=== PATIENT | female | born 1985 | race Caucasian/White ===

== ENCOUNTER 2020-02-01 16:21 | Outpatient (CLI) | payer BC, SELFPAY ==
--- NOTE | ~2020-02-01 | US_ITS ---
EXAMINATION: US thyroid EXAM DATE: 02/01/2020 17:02 INDICATION: Goiter. TECHNIQUE: Multiple grayscale and Doppler images of the thyroid were obtained (by a technologist who performed the scan) and subsequently reviewed. Individual nodules may be reported using TI-RADS syst em as designated by the 2017 ACR White Paper TI-RADS committee. There is no prior study for comparis on. FINDINGS: The right thyroid lobe measures 4.5 x 1.8 x 1.7 cm, the left measures 4.6 x 1.4 x 1.7 cm. There is di ffusely heterogeneous thyroid echogenicity. Difficult to pick out any definite nodules within the het erogeneous thyroid parenchyma. IMPRESSION: Mildly enlarged, very heterogeneous thyroid parenchyma. Reviewed, dictated and finalized at location A. OPATHOLOGY TECHNICIAN
== END 2020-02-01 16:22 | disposition home or self-care (01) ==
LOC: ANHIMG 16:26
PROVIDERS: PCP Nurse Practitioner Family; Visit Provider Nurse Practitioner Family
DX: E04.9 Nontoxic goiter, unspecified (principal)
CPT/HCPCS: 76536

== ENCOUNTER 2020-10-06 11:50 | Outpatient (NON) | payer BC, SELFPAY ==
[2020-10-06 21:15] LABS: SARS-CoV-2 RNA PCR Negative
== END 2020-10-06 11:51 ==
PROVIDERS: PCP Nurse Practitioner Family; Visit Provider Nurse Practitioner Family
DX: Z20.828 Contact with and (suspected) exposure to other viral communicable diseases (principal); R52 Pain, unspecified; M54.6 Pain in thoracic spine; R50.9 Fever, unspecified
CPT/HCPCS: 87635; C9803; U0003

== ENCOUNTER 2022-11-26 10:44 | Emergency (ER) | payer BC, SELFPAY ==
[2022-11-26 11:24] VITALS: BP 107/63; PULSE 64; RESP 16; TEMP 37.3; O2SAT 100
--- NOTE | 2022-11-26 12:33 | ED.FEMALEGU ---
HPI - Female Genitourinary General Chief complaint: Urogenital-Female Stated complaint: uti Time Seen by Provider: 11/26/22 12:34 Source: patient and RN notes reviewed Mode of arrival: ambulatory Limitations: no limitations History of Present Illness HPI Narrative: 37-year-old female presents concern for suprapubic discomfort, flank pain, chills. Reports the urinalysis that she had her software solutions architect showed abnormality through her online chart, her software solutions architect's office is closed. She reports symptoms have seemed to get worse so she wanted to be seen. MD elicited complaint: UTI Related Data Home Medications Medication Instructions Recorded Confirmed norethindrone 1 mg-ethinyl 1 tablet PO DAILY 11/26/22 11/26/22 estradiol 20 mcg (21)-iron 75 mg (7) tablet ([place] Fe 12/21 (28)) Allergies Allergy/AdvReac Type Severity Reaction Status Date / Time metformin AdvReac Cramping Verified 11/26/22 12:24 of the Muscles Review of Systems Review of Systems: CONSTITUTIONAL: Reports malaise, chills CARDIOVASCULAR: Denies chest pain, palpitations, or edema. RESPIRATORY: Denies cough or dyspnea. GASTROINTESTINAL: Denies abdominal pain, nausea, vomiting, diarrhea GENITOURINARY: Denies dysuria, frequency, urgency, hematuria. Reports bilateral flank pain, suprapubic discomfort SKIN: Denies rash or itching. MUSCULOSKELETAL: Denies back pain or myalgia. All systems reviewed & are unremarkable except as noted in HPI and below PMFSH Family History Family History (Updated 07/17/18 @ 08:34 by DOCTOR UNKNOWN) Grandparent Diabetes mellitus Family history of osteoporosis Cerebrovascular accident Father Family history of lung cancer Social History Social History Smoking status: Never smoker Alcohol intake: current Comments At time of signature, agree with nursing past medical, surgical, social and family history. There is no relevant family history pertinent to the presenting complaint Exam Narrative: GENERAL: Well-appearing, well-nourished, and in no acute distress. HEAD: Normocephalic. EYES: PERRLA, conjunctivae clear. NECK: Supple. No lymphadenopathy CHEST: Clear to auscultation. No respiratory distress. HEART: Regular rate and rhythm. ABDOMEN: Soft, nontender upon palpation, nondistended, normal active bowel sounds, no palpable or pulsatile masses, no guarding. No CVA tenderness SKIN: Warm, dry, no rash. NEURO: Alert and oriented x3. PSYCH: Normal mood and affect Course Course Emergency Course: Patient is aware of diagnosis, understands and agrees to treatment plan. Anticipatory guidance given. Patient agrees to follow-up as directed and is aware of reasons to seek care at the emergency department. Portions of this record may have been created with voice recognition software Level of Care: Express Care Visit Vital Signs Vital signs: Vital Signs Temperature 99.2 F 11/26/22 11:24 Pulse Rate 64 11/26/22 11:24 Respiratory Rate 16 11/26/22 11:24 Blood Pressure 107/63 11/26/22 11:24 Pulse Oximetry 100 11/26/22 11:24 Temperature 99.2 F 11/26/22 11:24 Pulse Rate 64 11/26/22 11:24 Respiratory Rate 16 11/26/22 11:24 Blood Pressure 107/63 11/26/22 11:24 Pulse Oximetry 100 11/26/22 11:24 Reviewed. MDM - Female Genitourinary MDM Narrative Medical decision making narrative: Exam findings and UA show no acute concerns or changes; patient is non-toxic appearing and is in no distress. Patient is appropriate for outpatient treatment and follow-up. Differential Diagnosis Differential diagnosis: Likely urinary tract infection and cystitis Lab Data Labs: Urine Glucose Negative Reference Range: Negative Urine Bilirubin Negative Reference Range: Negative Urine Ketone Negative
== END 2022-11-26 12:43 | disposition home or self-care (01) ==
PROVIDERS: Emergency Provider Nurse Practitioner; PCP Nurse Practitioner Family
DX: R10.30 Lower abdominal pain, unspecified (principal); R68.83 Chills (without fever)
CPT/HCPCS: 81003; 87086; 99213; G0463

== ENCOUNTER → 2022-12-07 17:00 | Outpatient (CLI) | payer BC, SELFPAY ==
--- NOTE | ~2022-12-07 | MM_ITS ---
EXAMINATION: MM screening yoly BI w cecile HISTORY: Screening mammogram TECHNIQUE: Craniocaudal and mediolateral oblique 3-D tomosynthesis images were obtained and synthetic 2-D images were generated. CAD analysis was submitted and interpreted. COMPARISON: No prior mammogram is available for comparison at this institution. BREAST PARENCHYMAL COMPOSITION: The breasts are heterogeneously dense, which may obscure small masses . FINDINGS: There is no evidence of suspicious mass, calcification, or architectural distortion to sugg est malignancy in either breast. IMPRESSION: 1. No mammographic evidence of malignancy. 2. Recommend routine screening mammography in one year. BI-RADS Category 1: Negative Reviewed, dictated and finalized at location A. MATE HOOPS REFEREE
== END ==
PROVIDERS: PCP Nurse Practitioner Family; Visit Provider Nurse Practitioner Family
DX: Z12.31 Encounter for screening mammogram for malignant neoplasm of breast (principal)
CPT/HCPCS: 77063; 77067

== ENCOUNTER 2024-03-19 13:20 | Outpatient (CLI) | payer BC, SELFPAY ==
--- NOTE | ~2024-03-19 | MM_ITS ---
EXAMINATION: MM screening yoly BI w cecile HISTORY: Screening TECHNIQUE: Craniocaudal and mediolateral oblique 3-D tomosynthesis images were obtained and synthetic 2-D images were generated. CAD analysis was submitted and interpreted. COMPARISON: 12/07/2022 BREAST PARENCHYMAL COMPOSITION: Dense: The breasts are heterogeneously dense, which may obscure small masses FINDINGS: There is no evidence of suspicious mass, calcification, or architectural distortion to sugg est malignancy in either breast. There has been no suspicious interval change. IMPRESSION: 1. No mammographic evidence of malignancy. 2. Recommend routine screening mammography in one year. BI-RADS Category 1: Negative Reviewed, dictated and finalized at location B.
== END 2024-03-19 13:21 ==
LOC: MICIMG 13:21
PROVIDERS: PCP Nurse Practitioner Family; Visit Provider Nurse Practitioner Family
DX: Z12.31 Encounter for screening mammogram for malignant neoplasm of breast (principal)
CPT/HCPCS: 77063; 77067

== ENCOUNTER 2025-03-23 08:36 | Outpatient (CLI) | payer BC, SELFPAY ==
--- NOTE | ~2025-03-23 | MM_ITS ---
EXAMINATION: MM screening yoly BI w cecile HISTORY: Screening TECHNIQUE: Craniocaudal and mediolateral oblique 3-D tomosynthesis images were obtained and synthetic 2-D images were generated. CAD analysis was submitted and interpreted. COMPARISON: Comparison to multiple prior studies sequentially, with oldest reviewed study dated 05/2023. BREAST PARENCHYMAL COMPOSITION: Dense: The breasts are heterogeneously dense, which may obscure small masses FINDINGS: The right breast is stable without evidence for malignancy. There is new focal asymmetry wi th possible architectural distortion laterally in the left breast, middle third on CC view. No corres ponding findings are seen on MLO view. IMPRESSION: 1. New focal left breast asymmetry. 2. Additional mammographic views and possible breast ultrasound are recommended. BI-RADS Category 0: Incomplete: Needs additional imaging evaluation. Reviewed, dictated and finalized at location A. IMPRESSION: 1. New focal left breast asymmetry. 2. Additional mammographic views and possible breast ultrasound are recommended . BI-RADS Category 0: Incomplete: Needs additional imaging evaluation.
--- OUTSIDE RECORDS SUMMARY | 2025-03-23 09:00 | XMS_ITS | Encounter Summary ---
Author Organization [facility] Address [address] [place] [id number] Care Team Providers Care Pizza Baker Name Role Phone Jacqui Molina Primary Care Provider [phone] Encounter Details Date Type Department Care Team (Late st Contact Info) Description 11/25/2022 Zattoot Message Enc [facility] Family & Internal Medicine [address] [id number] Jacqui Molina FNP [facility] [place], [place] [id number] UTI Social History Tobacco Use Types Packs/Day Years Used Date Smoking Tobacco: Never Smokeless Tobacco: Never Alcohol Use Standard Drinks/Week Comments Never 0 (1 standard drink = 0.6 oz pur e alcohol) AUDIT-C Answer Date Recorded Frequency of Alcohol Consumption Never 01/18/2020 Average Number of Drinks Not on file 020 Frequency of Binge Drinking Not on file 01/02 PHQ-2 Answer Date Recorded Patient Health Questionnaire-2 Score 0 11/20/2022 Comments No Sex and Gender Information Value Date Recorded Sex Assigned at Not on file Legal Sex Female 1:53 PM MANAGER ENVIRONMENTAL SERVICES Gender Identity Not on file Sexual Orientation Not on file COVID-19 Exposure Response Date Recorded In the last 10 days, have yo u been in contact with someone who was confirmed or suspected to have Coronavirus/COVID-19? No / Unsure 11/20/2022 9:09 AM MANAGER ENVIRONMENTAL SERVICES documented as of this encounter Plan of Treatment Upcoming Encounters Date Type Department Care Team (Late st Contact Info) Description 11/26/2025 10:00 AM MANAGER ENVIRONMENTAL SERVICES Office Visit [facility] Family & Internal Medicine - [place] [id number] [place] [address] Jacqui Molina FNP [address] [place] [id number] documented as of this encounter Visit Diagnoses Not on filedocumented in this encounter Additional Health Concerns Assessment Noted Time PHQ-9 Depression Total Score: 0 11/20/20 22 9:56 AM MANAGER ENVIRONMENTAL SERVICES documented as of this encounter Care Teams Pizza Baker Relationship Specialty Start Date End Date Jacqui Molina FNP [address] [place] [id number] PCP - General Nurse Practitioner Family 01/18/20 documented as of this encounter
--- OUTSIDE RECORDS SUMMARY | 2025-03-23 09:00 | XMS_ITS | Data Portability ---
Author Organization [employer] , [facility] Address [address] [place] [address] Assessment No assessment recorded. Plan of Treatment Reminders Order Date Submit Date Provider Last Modified By Organization Details Last Modified Time Details Appointments None recorded. Lab bacterial vaginosis + vaginitis panel, [facility] [address] [place] [address], [address], 4 13:26:39 test, urine 2022 023 [email or web address] 1 [facility], [address] [place], [address], 3 16:47:37 Referral None recorded. Procedures None recorded. Surgeries None recorded. Imaging None recorded. Medication Orders metronidazo le 500 mg tablet 2023 024 [email or web address] [id number], [address], [id number], 4 12:19:29 Patient TargetsNo targets recorded. Patient Instructions Encounter Date Encounter Id Patient Instructions Last Modified By Organization Details Last Modified Time 12/03/2023 [id number] bacterial vaginosis: care instructions [email or web address] Not available 12/03/2023 12:19:02 Reason for Referral None Reported. Results Created Date Observation Date Name Description Value Unit Range Abnormal Flag Note LastModifiedBy Organization Detail LastModifiedTime 06/12/20 23 06/12/2023 pregn aakash test, urine HCG negati ve Not Available [facility] [address] [place], [address], 06/12/2023 16:20:03 07/24/20 23 07/24/2023 CBC WITH DIFF WBC 6.5 x10'3 /uL 4.5-11 .0 Not Available [facility] (Lab) [place], [address], 07/24/2023 12:37:53 07/24/2007/24/2023 CBC WITH DIFF RBC 4.36 x10'6 /uL 4.20-5 .40 Not Available [facility] (Lab) [place], [address], 07/24/2023 12:37:53 07/24/2007/24/2023 CBC WITH DIFF hemoglobin 12.8 g/dL 12.0-1 6.0 Not Available [facility] (Lab) [place], [address], 07/24/2023 12:37:53 07/24/2007/24/2023 CBC WITH DIFF hematocrit 39.8 % 38.0-4 8.0 Not Available [facility] (Lab) [place], [address], 07/24/2023 12:37:53 07/24/2007/24/2023 CBC WITH DIFF MCV 91.3 fL 81.0-9 9.0 Not Available [facility] (Lab) [place], [address], 07/24/2023 12:37:53 07/24/2007/24/2023 CBC WITH DIFF MCH 29.4 pg 27.0-3 1.0 Not Available [facility] (Lab) [address], [place], [address], 07/24/2023 12:37:53 07/24/2007/24/2023 CBC WITH DIFF MCHC 32.2 g/dL 32.0-3 6.0 Not Available [facility] (Lab) [address], [place], [address], 07/24/2023 12:37:53 07/24/2007/24/2023 CBC WITH DIFF RDW 12.0 % 11.5-1 4.5 Not Available [facility] (Lab) [address] [facility], [place], [address], 07/24/2023 12:37:53 07/24/2007/24/2023 CBC WITH DIFF platelet count 155 x10'3 /uL 130-40 0 Not Available [facility] (Lab) [address], [place], [address], 07/24/2023 12:37:53 07/24/2007/24/2023 CBC WITH DIFF MPV 8.8 fL 9.3-12 .2 low Not Available [facility] (Lab) [address] [facility], [place], [address], 07/24/2023 12:37:53 07/24/2007/24/2023 CBC WITH DIFF diff type AUTOMA DEMETRIA DIFFER ENTIAL Not Available [facility] (Lab) [address], [place], [address], 07/24/2023 12:37:53 07/24/2007/24/2023 CBC WITH DIFF neutrophils 65.8 % Not Available [facility] (Lab) [address], [place], [address], 07/24/2023 12:37:53 07/24/2007/24/2023 CBC WITH DIFF lymphocytes 25.2 % Not Available [facility] (Lab) [address] [facility], [place], [address], 07/24/2023 12:37:53 07/24/2007/24/2023 CBC WITH DIFF monocytes 6.9 % Not Available [facility] (Lab) [address] [facility], [place], [address], 07/24/2023 12:37:53 07/24/2007/24/2023 CBC WITH DIFF eosinophils 1.2 % Not Available [facility] (Lab) [place], [address], 07/24/2023 12:37:53 07/24/2007/24/2023 CBC WITH DIFF basophils 0.6 % Not Available [facility] (Lab) [address] [facility], [place], [address], 07/24/2023 12:37:53 07/24/2007/24/2023 CBC WITH DIFF immature granulocytes 0.3 % Not Available [facility] (Lab) [address] [facility], [place], [address], 07/24/2023 12:37:53 07/24/2007/24/2023 CBC WITH DIFF abs. neutrophils 4.28 x10'3 /uL 1.80-7 .70 Not Available [facility] (Lab) [address] [facility], [place], [address], 07/24/2023 12:37:53 07/24/2007/24/2023 CBC WITH DIFF abs. lymphocytes 1.64 x10'3 /uL 1.00-4 .80 Not Available [facility] (Lab) [place], [address], 07/24/2023 12:37:53 07/24/20 23 07/24/2023 CBC WITH DIFF abs. monocytes 0.45 x10'3 /uL 0.24-0 .86 Not Available [facility] (Lab) [address], [place], [address], 07/24/2023 12:37:53 07/24/20 23 07/24/2023 CBC WITH DIFF abs. eosinophils 0.08 x10'3 /uL 0.04-0 .36 Not Available [facility] (Lab) [address], [place], [address], 07/24/2023 12:37:53 07/24/2007/24/2023 CBC WITH DIFF abs. basophils 0.04 x10'3 /uL 0.01-0 .08 Not Available [facility] (Lab) [place], [address], 07/24/2023 12:37:53 07/24/20 23 07/24/2023 CBC WITH DIFF abs. immature grans 0.02 x10'3 /uL 0.00-0 .49 Not Available [facility] (Lab) [place], [address], 07/24/2023 12:37:53 07/24/2007/24/2023 SERUM PREGN AAKASH TEST serum test NEGATI VE Not Available [facility] (Lab) [place], [address], 07/24/2023 12:47:44 07/24/2007/24/2023 TYPE AND SCREE N ABO/Rh(D) O POSITI VE Not Available [facility] (Lab) [address], [place], [address], 07/24/2023 13:31:05 07/24/20 23 07/24/2023 TYPE AND SCREE N antibody screen NEGATI VE Not Available [facility] (Lab) [address], [place], [address], 07/24/2023 13:31:05 07/24/2007/24/2023 TYPE AND SCREE N xm expiration 2022,[address] [facility] (Lab) [address], [place], [address], 07/24/2023 13:31:05 07/24/20 23 07/26/2023 KYARA SURGI DEL[facility] 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 The dyspl catarina focal ly invol ves endoc ervic al gland s. High grade dyspl catarina appro aches the oleg ns of the large st piece but is not defin itive ly prese nt at the oleg n. There is low grade squam ous dyspl catarina (HIRO 1) prese nt in two of the other three fragm ents. This low grade dyspl catarina exten ds to the inked oleg n of one of the small er fragm ents. It is uncle ar if these oleg ns repre sent true oleg ns as the speci men was recei margarita in four unori ented fragm ents. Clini delmi corre latio n is neede d. Carmen kevinon icall y Brenda d Out FARIBA NEVAREZ MD Patho logis t SMO:l c Micro scopi c Descr iptio n: Micro scopi c exami natio n subst antia jami above diagn osis. Clini delmi Histo ry Cervi delmi dyspl catarina Gross Descr iptio n Recei margarita is a singl e forma chilo-f illed conta iner label ed with the patie nt's name (Indy Mcc[address]), date of (01/03 4), colle ction time 07/24 at 1359, and addit ional ly label ed ecto cervi x. The speci men consi sts of three gauze pads with four adher ed undes ignat ed and ragge d fragm ents of pink- viramontes to pink- red cervi delmi tissu e, measu ring 0.8 x 0.8 x 0.3 cm, 1.8 x 0.9 x 0.5 cm, 2.0 x 1.2 x 0.5 cm, and 2.8 x 1.2 x 0.7 cm. There is minim al adher ed trans lucen t mucin ous mater ial prese nt. After evalu ation with Dr. Nevarez , it is deter mined that the ectoc ervic al and deep oleg n canno t be deter mined . There fore, the entir e poten tial resec tion oleg n of each fragm ent of cervi delmi tissu e are inked black . The speci men is submi tted entir concetta as follo ws: 1 - Two small piece s of cervi delmi tissu e step secti oned and submi tted entir concetta 2-3 - Large r cervi delmi fragm ent of tissu e step secti oned and submi tted entir concetta 4-5 - Large st fragm ent of cervi delmi tissu e step secti oned and submi tted entir concetta :wale Jose Manuel ng Fee Code( s): 31087 Not Available [facility] (Lab) [address] [facility], [place], [address], 07/26/2023 14:44:34 10/16/20 23 10/17/2023 KYARA SURGI DELMI PATHO LOGY path report [facility] angelica [address] [facility] [place] [address] Phone : [phone] Fax: Depar tment of Patho logy Patho logy Repor t SURGI DELMI FINAL REPOR T Patie nt Name: MCKENNA KAYLYNN CARISA Shankar Fermín gilbert# : [id number] : 1984 (Age: 38) Locat ion: JESUS S Gende r: F Colle cted Date: 10/16 Med Rec #: [id number] Date Recei margarita: 10/16 Date Repor demetria: 10/17 Provi sherrill: BEVERLY Bauer VISITOR SERVICES ASSISTANT-C Speci men(s ) Uteru s with cervi x, bilat eral fallo pian tubes Final Patho logic Diagn osis UTERU S, CERVI X, BILAT ERAL FALLO PIAN TUBES ; HYSTE RECTO MY AND BILAT ERAL SALPI NGECT SARA: -CERV IX WITH CHRON IC INFLA MMATI ON -NO RESID UAL CERVI DELMI DYSPL CATARINA IDENT IFIED -MACY Y SECRE TORY PHASE ENDOM ETRIU M -MYOM ETRIU M WITHI N PRATIMA L LIMIT S -LEFT FALLO PIAN TUBE WITHI N PRATIMA L LIMIT S -RIGH T FALLO PIAN TUBE WITH BENIG N PARAT UBAL CYST Carmen ctron icall y Brenda d Out JACQUE Turner MD Patho logis t IF[facility]:i fh Micro scopi c Descr iptio n: Micro scopi c exami natio n is perfo rmed, and the findi ngs suppo rt the final diagn osis. Clini delmi Histo ry Cervi delmi dyspl catarina N87.9 Gross Descr iptio n Recei margarita is a singl e forma chilo-f illed conta iner label ed with the patie nt's name (Indy Mccullough rd), date of (01/29 ), colle ction time 10/16 at 8:59, and uter us, cervi x, bilat eral fallo pian tubes . The speci men consi sts of a 113-g mike uteru s with attac hed cervi x and attac hed purpl e-viramontes fimbr iated fallo pian tubes . The uteru s measu res 9 cm from fundu s to cervi x, 6.5 cm from cornu to cornu , and 4.7 cm from anter ior to poste rior. The seros a is pink- viramontes and gisela h. The cervi x measu res 3.5 x 3.6 cm with a slit- like os. The cervi x is inked as follo ws: 12-3 blue, 3-6 black , 6-9 orang e, and 9-12 green . The uteru s is bival margarita to revea l a uteri ne cavit y measu ring 5.4 x 3.4 cm. The endom etriu m is pink- viramontes and sligh tly sloug rick, measu ring up to 0.4 cm in thick ness. The cervi delmi canal is paten t. Secti oning of the myome trium revea ls a pink- viramontes and sligh tly trabe culat ed cut surfa ce with incre ased inter venin g vascu latur e, avera ging 2.5 cm in thick ness. The left fallo pian tube measu res 7 cm in lengt h with a diame ter up to 1 cm. The right fallo pian tube measu res 7 cm in lengt h with a diame ter up to 1 cm. Secti oning of the tubes revea ls a pinpo int lumen . Repre senta tive secti ons are submi tted as follo ws: 1 Repre senta tive left fallo pian tube to inclu de fimbr iae submi tted entir ely2 Repre senta tive right fallo pian tube to inclu de fimbr iae submi tted entir ely3- 4 Repre senta tive full- thick ness anter ior endom yomet rium5 -6 Repre senta tive full- thick ness poste rior endom yomet rium7 -10 Cervi x seria lly secti oned and submi tted entir concetta from 12-3: 0011- 14 Cervi x seria lly secti oned and submi tted entir concetta from 9-12: 0015- 20 Cervi x seria lly secti oned and submi tted entir concetta from 3-6:0 021-2 5 Cervi x seria lly secti oned and submi tted entir concetta from 6-9:0 0 :ifh Jose Manuel ng Fee Code( s): 08160 Not Available [facility] (Lab) [address] [facility], [place], [address], 10/17/2023 15:58:43 12/03/19 24 12/04/2023 VAGIN ITIS PANEL bacterial vaginosis BV neg negati ve normal Not Available [facility] [address] [place], [address], 12/04/2023 13:26:39 12/03/19 24 12/04/2023 VAGIN ITIS PANEL jaycee species C. spp neg negati ve normal Not Available [facility] [address] [place], [address], 12/04/2023 13:26:39 12/03/19 24 12/04/2023 VAGIN ITIS PANEL jaycee glabrata C. gla neg negati ve normal Not Available [facility] [address] [place], [address], 12/04/2023 13:26:39 12/03/19 24 12/04/2023 VAGIN ITIS PANEL trichomonas vaginalis CV/TV TRICH neg negati ve normal Not Available [facility] [address] [place], [address], 12/04/2023 13:26:39 Result Notes None recorded. Problems Name Problem SNOMED Code Status Onset Date Resolution Date Notes Provider Name and Address Organization Details Recorded Time Acute thoracic back pain 109992888 Active 2019 Beverly Silva MD [address] [place] [address], [address], [facility] 3 18:20:32 Vitamin D deficiency 37824709 Active 2018 Beverly Silva MD [address] [place] [address], [phone], [facility] 3 19:14:03 Goiter 5077113 Active 2019 Beverly Silva MD [address] [place] [address], [address], [facility] 3 18:20:32 Past history of gestational diabetes mellitus 265832727 Active 2019 Beverly Silva MD [address] [place] [address], [address], [facility] [employer] [facility] 3 19:13:40 Human papillomavirus deoxyribonucle ic acid detected, high risk on cervical specimen 238404912 Active 2013 Beverly Silva MD [address] [place] [address], [address], [facility] 3 19:14:07 Overweight in adulthood with body mass index of 25 or more but less than 30 507571133 Active 2020 Beverly Silva MD [facility] [place], [address], [employer] [facility] 18:20:32 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 Procedures Surgical History Date Name Laterality Status Provider Name and Address Organization Details Recorded Time 12/03/19 24 Suture/Staple removal completed Beverly Silva MD [address] [place] [address], [phone], [facility] 12/02/2023 19:51:29 10/31/20 23 Suture/Staple removal completed Beverly Silva MD [address] [place] [address], [phone], [facility] 10/30/2023 19:16:02 10/16/20 23 Tlh uterus 250 g or less completed Beverly Silva MD [address] [place] [address], [phone], [facility] 10/30/2023 19:15:11 07/24/20 23 Bx of cervix w/scope leep completed Linda Richards [place] [facility] 08/08/2023 16:19:44 06/12/20 23 LEEP completed LACY GRAMAJO DO [address] [place] [address], [phone], [facility] 06/12/2023 16:45:19 04/11/20 23 Colposcopy - Cervix completed LACY GRAMAJO DO [address] [place] [address], [phone], [facility] 04/11/2023 14:41:33 02/14/20 23 Date of Last Pap Smear completed Ju Prado [employer] [facility] 03/18/2023 15:10:07 12/07/19 23 Most Recent Mammogram completed Ju Prado [employer] [facility] 03/18/2023 15:12:03 tonsillectomy completed Linda Richards [facility] [employer] [facility] 08/08/2023 16:18:00 Imaging Results None recorded. Procedure Notes None recorded. Medical Equipment None Reported. Allergies Allergen ID Allergen Name Allergen Category Reaction Reaction Severity Criticality Documentation Date Start Date Code Code System Note Provider Name and Address Organization Details Recorded Time 723879 metformin medicatio n other moderate Not available 03/18/20232018 6809 RxNorm Not Available Not Available Not Available 515053 lidocaine medicatio n tachycard ia Not available Not available 08/05/20232022 6387 RxNorm Not Available Not Available Not Available Medications Name Sig Start Date Stop Date Status Note LastModified by Organization Details LastModified Time Colace 100 mg capsule Take 100 mg twice a day by oral route. 12/03 completed Not Available Not Available Not Available cetirizine 10 mg tablet 10 mg by oral route. active Not Available Not Available No t Available ibuprofen 800 mg tablet 800 mg every 8 hours by oral route. 10/10 completed Not Available Not Available Not Available metronidazo le 500 mg tablet TAKE 1 TABLET BY MOUTH EVERY 12 HOURS FOR 7 DAYS active Not Available Not Available No t Available ciprofloxac in 500 mg tablet TAKE 1 TABLET BY MOUTH EVERY 12 HOURS FOR 7 DAYS 03/18 completed Not Available Not Available Not Available oxycodone-a cetaminophe n 5 mg-325 mg tablet Take 1 {tbl} every 4 hours by oral route. 12/03 completed Not Available Not Available Not Available amoxicillin 875 mg tablet TAKE 1 TABLET BY MOUTH EVERY 12 HOURS FOR 10 DAYS 03/18 completed Not Available Not Available Not Available epinephrine 0.3 mg/0.3 mL injection, auto-inject or INJECT 1 PEN IN THE MUSCLE ONE TIME DIRECTED 03/18 completed Not Available Not Available Not Available albuterol sulfate HFA 90 mcg/actuati on aerosol inhaler 2 {puff}s every 4 hours by inhalatio n route. 2022 active Not Available Not Available Not Avai lable Junel FE .5 (28) 1.5 mg-30 mcg (21)/75 mg (7) tablet TAKE 1 TABLET BY MOUTH DAILY 03/18 completed Not Available Not Available Not Available metronidazo le 1 % topical gel APPLY TO ROSACEA ON FACE ONCE DAILY 08/09 completed Not Available Not Available Not Available magnesium active Not Available Not Cleo ilable Not Available calcium active Not Available Not Avail able Not Available zinc active Not Available Not Availa ble Not Available olopatadine 0.6 % nasal spray INSTILL 2 SPARYS IN EACH NOSTRIL TWICE DAILY 03/18 completed Not Available Not Available Not Available Zyrtec 10 mg capsule Take by oral route. active Not Available Not Available No t Available Multi For Her active Not Available Not Available Not Available Contrave 8 mg-90 mg tablet,exte nded release active Not Available Not Available Not Available Flonase Allergy Relief active Not Available Not Available Not Available Blisovi Fe 12/21 () 1 mg-20 mcg (21)/75 mg (7) tablet TAKE 1 TABLET BY MOUTH DAILY 03/18 completed Not Available Not Available Not Available Vitals Date Recorded Body height Body mass index (BMI) Body weight Body temperature Systolic blood pressure Diastolic blood pressure Provider Name and Address Organization Details Last Updated DateTime 3 157.48 cm 27.7 kg/m2 19235.8 8 g 97 [degF] 112 mm[Hg] 60 mm[Hg] Jaylinaddy Eve [employer] [facility] 3 16:18:17 Date Recorded Body height Body mass index (BMI) Body weight Systolic blood pressure Diastolic blood pressure Provider Name and Address Organization Details Last Updated DateTime 08/09/2023 157.48 cm 28.2 kg/m2 31770.94 g 122 mm[Hg] 80 mm[Hg] Petra Daley [employer] [facility] 3 09:11:33 Date Recorded Body height Body mass index (BMI) Body weight Body temperature Systolic blood pressure Diastolic blood pressure Provider Name and Address Organization Details Last Updated DateTime 3 157.48 cm 28.2 kg/m2 51201.9 4 g 98.4 [degF] 112 mm[Hg] 76 mm[Hg] Keara Larioslister [facility] [employer] IV 3 14:14:06 Date Recorded Body height Body mass index (BMI) Body weight Systolic blood pressure Diastolic blood pressure Provider Name and Address Organization Details Last Updated DateTime 10/31/2023 157.48 cm 27.4 kg/m2 72475.86 g 128 mm[Hg] 70 mm[Hg] Jocelyn Mcneiler [facility] [employer] IV 3 11:04:56 Date Recorded Body height Body mass index (BMI) Body weight Systolic blood pressure Diastolic blood pressure Provider Name and Address Organization Details Last Updated DateTime 12/03/2023 157.48 cm 27.4 kg/m2 18175.86 g 120 mm[Hg] 76 mm[Hg] Petra Daley [facility] [employer] IV 4 12:08:44 Social History Question Answer Notes LastModified by [employer] Details LastModified Time Tobacco Smoking Status Never Smoker [place], [place] [employer] [facility] 03/18/2023 15:15:23 What Is Your Level Of Alcohol Consumption? Occasional Information not available 03/18/2023 How Many Times Per Week Do You Consume Alcohol? Less Than 1 Time Per Week Information not available 03/18/2023 Are You Blind Or Do You Have Difficulty Seeing? No Information not available 03/18/2023 Are You Deaf Or Do You Have Serious Difficulty Hearing? No Information not available 03/18/2023 What Type Of Diet Are You Following? REGULAR Information not available 03/18/2023 How Many Children Do You Have? 3 Information not available 03/18/2023 What Is Your Relationship Status? Information not available 03/18/2023 Are You Sexually Active? Yes Information not available 03/18/2023 What Types Of Sporting Activities Do You Participate In? Run Information not available 03/18/2023 Do You Use Any Illicit Or Recreational Drugs? No Information not available 03/18/2023 Sex: Unknown Functional Status Question Answer Note LastModified by Organizat ion Details LastModified Time What is your exercise level? Occasional Information not available 03/18/2023 Mental Status None recorded. Family History Relationship Description Onset Age of this Age Resolved Age Notes LastModified by Organization Details LastModified Time Mother Hyperthyroid ism Not available 2022 15:14:03 Medical History Condition Response Other Cancer N High Blood Pressure N Colon Cancer N Cytomegalovirus N Hyperthyroidism N Herpes (HSV) N Breast Cancer N Blood Transfusion N MRSA N Lung Cancer N Hypothyroidism N Depression N Incontinence N Panic Attacks N Neurological Disorder N Deep Vein Thrombosis N Anxiety Disorder N Autoimmune disease N Arthritis N Tuberculosis/Positive PPD N Shingles N Polycystic Ovarian Syndrome N Cervical Cancer N Chlamydia N Hematuria N Stroke N Varicosities N Crohn's Disease N Seasonal allergies N Alzheimer's/Dementia N COPD/Emphysema N HPV/Genital Warts N Endometriosis N IBS (Irritable Bowel Syndrome) N History of Abnormal Pap N High Cholesterol N Liver Disease N Kidney Infection N Fibromyalgia N Ulcer N Kidney Disease N HIV N Gallbladder disease N Sickle Cell Disease/Trait N Von Willebrand disease N ADD/ADHD N Eating Disorder N Anemia N Diabetes Mellitus (non-insulin dependent ) Y Ovarian Problems N Multiple Sclerosis N Gonorrhea N Frequent Urinary Tract infections N Osteopenia N Headaches/migraines N GERD (reflux) N Ovarian Cancer N Diabetes (insulin dependent) N Seizures/Epilepsy N Fibroids N Heart Attack N Asthma N Lupus N Endometrial Cancer N Rubella N Blood Clotting Disorder N Bipolar Disorder N Diabetes Mellitus (during ) N Ulcerative Colitis N Hepatitis N Heart Disease N Pulmonary Embolism N RPR N Chicken Pox N Osteoporosis N Gynecological History Statement/Question Response Date of Last Colonoscopy Flow Light Date of LMP 09/26/2023 Date of Last Pap Smear 02/13/2023 Duration of Flow (days) 7 Most Recent Mammogram 12/07/2022 Current Control Method Hysterectom y Age at Menarche 10 Obstetrics History GPAL:G 3 P 3 0 0 3 Type Value Full Term 3 Living 3 Total 3 Immunizations Vaccine Type Date Status Note Provider Nam lilo and Address Organization Details Recorded Time MMRV 9 completed Beverly Silva MD [address] [facility], [place], [address], [facility] 08/05/2023 18:20:32 COVID-19, mRNA, LNP-S, PF, 100 mcg/0.5mL dose or 50 mcg/0.25mL dose 1 completed Beverly Silva MD [address] [place] [address], [phone], [facility] IV 08/05/2023 18:20:32 COVID-19, mRNA, LNP-S, PF, 100 mcg/0.5mL dose or 50 mcg/0.25mL dose 1 completed Beverly Silva MD [address] [place] [address], [phone], [facility] IV 08/05/2023 18:20:32 COVID-19, mRNA, LNP-S, PF, 100 mcg/0.5mL dose or 50 mcg/0.25mL dose 2 completed Beverly Silva MD [address] [place] [address], [phone], [facility] IV 08/05/2023 18:20:32 pneumococcal polysaccharide PPV23 4 completed Beverly Silva MD [address] [place] [address], [phone], [facility] IV 08/05/2023 18:20:32 influenza, unspecified formulation 4 completed Beverly Silva MD [address] [place] [address], [phone], [facility] IV 08/05/2023 18:20:32 influenza, unspecified formulation 6 completed Beverly Silva MD [address] [place] [address], [phone], [facility] IV 08/05/2023 18:20:32 influenza, unspecified formulation 6 completed Beverly Silva MD [address] [place] [address], [phone], [facility] IV 08/05/2023 18:20:32 influenza, unspecified formulation 5 completed Beverly Silva MD [address] [place] [address], [phone], [facility] 08/05/2023 18:20:32 influenza, unspecified formulation 4 completed Beverly Silva MD [address] [place] [address], [phone], [facility] 08/05/2023 18:20:32 influenza, unspecified formulation 8 completed Beverly Silva MD [address] [place] [address], [phone], [facility] 08/05/2023 18:20:32 influenza, unspecified formulation 9 completed Beverly Silva MD [address] [place] [address], [phone], [facility] 08/05/2023 18:20:32 influenza, unspecified formulation 2 completed Beverly Silva MD [address] [place] [address], [phone], [facility] 08/05/2023 18:20:32 influenza, unspecified formulation 3 completed Beverly Silva MD [address] [place] [address], [phone], [facility] 08/05/2023 18:20:33 influenza, unspecified formulation 1 completed Beverly Silva MD [address] [place] [address], [phone], [facility] IV 08/05/2023 18:20:33 Tdap 4 completed Beverly Silva MD [address] [place] [address], [phone], [facility] IV 08/05/2023 18:20:33 Tdap 4 completed Beverly Silva MD [address] [place] [address], [address], [facility] 08/05/2023 18:20:33 Tdap 9 completed Beverly Silva MD [address] [place] [address], [phone], [facility] IV 08/05/2023 18:20:33 Tdap 8 completed Beverly Silva MD [address] [facility], [place], [address], [facility] IV 08/05/2023 18:20:33 Influenza, split virus, quadrivalent, PF 0 completed Beverly Silva MD [facility] [place], [address], [facility] IV 08/05/2023 18:20:33 Influenza, split virus, quadrivalent, PF 9 completed Beverly Silva MD [address] [place] [address], [phone], [facility] IV 08/05/2023 18:20:33 Past Encounters Encounter ID Performer Location Encounter Start Date Encounter Closed Date Diagnosis/Indication Diagnosis SNOMED-CT Code Diagnosis ICD10 Code Diagnosis Note [id number] LACY GRAMAJO DO [facility] [address] [place] [address] 03/18/2023 14:56:57 03/18/2023 15:31:09 Human papillomavirus deoxyribonucleic acid detected, high risk on cervical specimen 839487044 R87.810 Atypical s quamous cells on cervical Papanicolaou smear cannot exclude high grade squamous intraepithelial lesion [id number] R87.611 current dx: ASC-H w/ +HRHPV.H/o abnormal paps requiring colposcopy and LEEPRisk of HIRO 3+: 26%Discuss ed Colpo vs LEEPPt would like to proceed with: colposcopy [id number] LACY GRAMAJO DO [facility] [address] [place] [address] 04/11/2023 13:51:19 04/12/2023 09:07:33 Human papillomavirus deoxyribonucleic acid detected, high risk on cervical specimen [id number] R87.810 Atypical s quamous cells on cervical Papanicolaou smear cannot exclude high grade squamous intraepithelial lesion 048243908 R87.611 38 y.o. here for colposcopy for ASC-H w/ +HRHPV - Colpo satisfacto ry- Impression : HIRO 2- Biopsy taken at 2,6,9,11 o'clock- All questions answered, pelvic rest x 3 days recommende d- Will contact via Portal with results if normal and schedule follow up PRN if not [id number] LACY GRAMAJO, [address] [address] 06/12/2023 15:53:30 06/12/2023 18:12:12 Human papillomavirus deoxyribonucleic acid detected, high risk on cervical specimen [id number] R87.810 Cervical intraepithelial neoplasia grade 2 [id number] N87.1 28 y.o. 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 Reviewed the risks of bleeding, infection, injury. Discussed the postoperat kelli healing course. Patient is aware that hysterecto my will cure cervical dysplasia but not HPV. She understand s she will require surveillan ce after hysterecto my with future pap smears and exams. [id number] Beverly Silva MD [address] [address] 10/11/2023 14:07:21 10/11/2023 16:52:20 Carcinoma in situ of uterine cervix 78542758 D06.0 Discussed options for treatment of symptoms. Patient is most interested in hysterecto my. We discussed the planned procedure of Robotic TLH/possBS O/cystosco py. Patient is aware that there are alternativ e routes of hysterecto my and their associated risks and benefits. Reviewed risks including but not limited to bleeding, infection, injury and abdominal incision. Patient is aware that this is an outpatient procedure and understand s that certain criteria must be met before discharge. She is also aware of her restrictio ns in the immediate 2 week post op period and that she should follow up at 2 weeks and 6 weeks postoperat kelli. we discussed insertion/ removal process of the ON Q pain managment system Pre-surger y evaluation [id number] Z01.406 [id number] Beverly Silva MD [facility] [address] [place] [address] 10/31/2023 10:57:34 10/31/2023 17:54:57 Postoperative visit [id number] Z09 Discussed postoperat kelli pathology with patient. Reviewed Surgical findings. Patient instructed to maintain strict pelvic rest and no heavy lifting greater than 20 lbs. She was instructed to return for a second postoperat kelli visit in 4 weeks to evaluated the vaginal cuff. All of her questions were answered. [id number] Beverly Silva MD [facility] [address] [place] [address] 12/03/2023 12:00:46 12/03/2023 12:49:46 Postoperative visit [id number] Z09 Routine post operative care. May return to normal activities . Discussed careful return to vaginal intercours e. Reviewed Pathology findings with the patient. All questions answered to fullest extent. Follow up per routine DISABILITY CASE MANAGER care. Needs pap in 1 year for HIRO 3. Vaginal discharge 722851 006 N89.8 Bacterial vaginosis 4197 46932 N76.0 Health Concerns Section Related Observation LastModified by Organization Detai ls LastModified Time None Recorded Concern Status LastModified by Organization Details LastModified Time None Recorded Advance Directives Directive None Recorded Payers Encounter Date Sequence Insurance Name Policy Number Policy Hodges Covered Member ID Hodges Member ID Guarantor Name 06/12/2023 1 [employer] [place] [id number] Brody Batista [id number] Osiris Batista 08/09/2023 1 [employer] [place] [id number] Brody Batista [id number] Osiris Batista 10/11/2023 1 [employer] [place] [id number] Brody Batista [id number] Osiris Batista 10/31/2023 1 [employer] [place] [id number] Brody Batista [id number] Osiris Batista 12/03/2023 1 [employer] [place] [id number] Brody Batista [id number] Osiris Batista Notes Date Note Type Note Provider Name and Address Organization Details Recorded Time 06/12/2023 text/html Patient is here for LEEP procedure LACY GRAMAJO DO [address] [place] [address], [phone], [facility] [employer] IV 06/12/2023 16:48:42 08/09/2023 text/html Osiris is here today for a follow up to talk about her test results. she She had a abnormal pap on 02/13/2023. She had colpo done 04/11/2023 which was HIRO 2 and a leep done on 06/12/2023 which was CIN1-3. Margins are questionably positive. She states she is not having any issues. Beverly Silva MD [address] [place] [address], [phone], [facility] [employer] IV 08/09/2023 09:33:33 10/11/2023 text/html Pre-Op OBGYN HPIReported bypatient.Surgery to be Performed:Robotic TLH, poss BSO, poss cystoscopy Risk Factorsno malnutrition; no obstructive sleep apnea; non-smoker; no alcohol misuse; no illicit drug use Anesthesia hx:no hx of anesthesia complications; no allergy to anesthetic agents; no family history of anesthesia complications Past surgical issuesNo previous surgical complications Bleeding disordersNo bleeding / clotting issues Damien TLH, poss BSO, poss cysto @ [facility] 10-16-23 w/ Dr Yoni Silva MD [address] [place] [address], [phone], [facility] [employer] [facility] 10/11/2023 14:31:51 10/31/2023 text/html Post-OpReported bypatient.Onset/Librado ing:date of surgery: (10-16-2023) Quality:procedure: (Robotic TLH/BS) Context:reason for procedure: (Cervical Dysplasia) Associated Symptoms:no fatigue; normal appetite; no constipation; no pain Beverly Silva MD [address] [place] [address], [phone], [employer] IV 10/31/2023 11:10:55 12/03/2023 text/html Post-OpReported bypatient.Onset/Librado in10/16/2023 Quality:Robotic TLH/BS/Insertion of On Q pain management system Associated Symptoms:incision healing well; no fatigue; normal appetite; normal bowel function; no constipation; no nausea; no emesis; no pain; no fever; no bleeding; no lower extremity edema/pain; no dysuria/urinary symptoms Beverly Silva MD [address] [place] [address], [phone], [employer] IV 12/03/2023 12:19:56 OBGyn Episode No OBEpisode recorded.
--- OUTSIDE RECORDS SUMMARY | 2025-03-23 09:00 | XMS_ITS | Clinical Summary ---
Author Organization [facility] Address [address] [place] [address] Care Team Providers Care Roving Frame Tender Name Role Phone Jacqui Molina NARCISA Primary Care Provider [phone] Allergies Active Allergy Reactions Criticality Noted Date Comments Metformin Other (see comment) Medium 05/26/2019 Severe Cramping Medications cetirizine 10 MG tablet Take 1 tablet (10 mg total) by mouth daily. Active Multiple Vitamins-Mineral s (MULTIVITAMIN ADULT OR) Take by mouth daily. Active calcium-magnesiu m-zinc 333-133-5 MG Tab Take 1 tablet by mouth daily. Active Fluticasone Propionate (FLONASE ALLERGY RELIEF NA) as needed. 07/02/2022 Active Vitamin D3 (VITAMIN D) 50 mcg tablet Take 1 tablet (50 mcg total) by mouth daily. Active Zinc 50 MG Tab Take 50 mg by mouth Daily. Active Active Problems Problem Noted Date Diagnosed Date Overweight with body mass in dex (BMI) of 25 to 25.9 in adult 11/23/2024 S/P hysterectomy 10/16/2023 High grade squamous intraepi thelial lesion (HGSIL), grade 3 HIRO, on biopsy of cervix 10/15/2023 Dysplasia of cervix, high grade HIRO 2 07/24/2023 Encounter for initial prescription of contracept kelli pills 11/20/2022 Epidermoid cyst of skin of back 11/20/2022 Screening for human papillomavirus (HPV) 021 Goiter 01/20/2020 Hx gestational diabetes 01/20/2020 Low grade squamous intraepit h lesion on cytologic smear cervix (lgsil) 01/23/2019 Vitamin D deficiency 01/14/2019 Cervical high risk HPV (human papillomavirus) te st positive 04/17/2014 Overview (01/18/2020): High risk HPV infection Resolved Problems Problem Noted Date Diagnosed Date Resolved Date Well woman exam with routine gynecological exam 02/17/2021 02/20/2021 Screening for cervical cancer 02/17/2021 02/20/2021 Overweight with body mass in dex (BMI) of 27 to 27.9 in adult 02/17/2021 11/23/2024 Acute thoracic back pain, un specified back pain laterality 10/05/2020 11/22/2023 Generalized body aches 10/05/202011/22 Fever, unspecified fever cause 10/05/2020 11/20/2022 Skin lesions 01/20/2020 11/22/2023 Adult BMI 28.0-28.9 kg/sq m 01/20/2020 11/20/2022 Diet controlled gestational diabetes mellitus (GDM) in third trimester ([facility]) 04/07/201911/22 Encounters Date Type Department Care Team Description 01/25/2025 Scan HEALTH INFO SRVCS Scanned, Doc [facility] from Last 3 Months Immunizations Immunization Administration Dates Next Due Fluarix (IIV4) 08/27/2019 Fluzone 6 Months+ Quad (0.5 mL Prefilled Syringe) 07/21/2020 Influenza (Generic) 09/18/2024,,12/02/2013,2010 Influenza Adult (Generic) 09/19/2023,,09/01/2022,2019,08/27/2019,08/20/2018,08/15/2016,0 08/02/2016,08/16/2015,08/17/2014, 013 MMR (Generic) 06/18/2019 MODERNA COVID-19 BIVALENT (1 2+), MRNA, LNP-S, PF 09/01/2022 MODERNA COVID-19 (12+) MRNA, LNP-S, PF, 100 MCG/ 0.5 ML DOSE 09/01/2022,01/26/2021,12/28/2020 Pneumococcal (Pneumovax 23) 08/17/2014 Tdap (Boostrix) 02/08/2014 Tdap (Generic) 06/17/2019,12/02/2013,08/11/2008 Family History Medical History Relation Comments Cancer Father Lung Cancer Diabetes Father Diabetes Maternal Grandfather Diabetes Maternal Grandmother Heart Disease Maternal Grandmother Breast Problems Mother Cancer Mother Lung cancer Diabetes Mother Thyroid Disease Mother Cancer Paternal Grandfather Skin Diabetes Paternal Grandfather Cancer Sister Lymphoma & Breas t Heart Disease Sister CHF Relation Status Comments Father (Age 64) lung cancer Maternal Grandfather Maternal Grandmother Mother Alive Paternal Grandfather Sister Alive Social History Tobacco Use Types Packs/Day Years Used Date Smoking Tobacco: Never Passive Smoke Exposure: Past Smokeless Tobacco: Never Tobacco Cessation:Counseling Given: Not Answered Alcohol Use Standard Drinks/Week Comments Yes 0 (1 standard drink = 0.6 oz pur e alcohol) I drink less than weekly AUDIT-C Answer Date Recorded Frequency of Alcohol Consumption Never 01/18/2020 Average Number of Drinks Not on file 020 Frequency of Binge Drinking Not on file 01/02 PHQ-2 Answer Date Recorded Patient Health Questionnaire-2 Score 0 01/03/2024 Comments No Sex and Gender Information Value Date Recorded Sex Assigned at Not on file Legal Sex Female 1:53 PM PAYROLL AND BENEFITS ASSISTANT Gender Identity Not on file Sexual Orientation Not on file Last Filed Vital Signs Vital Sign Reading Time Taken Comments Blood Pressure 106/53 11/23/2024 9:59 AM PAYROLL AND BENEFITS ASSISTANT Pulse 66 11/23/2024 9:59 AM PAYROLL AND BENEFITS ASSISTANT Temperature 36.6 C (97.9 F) 11/23/2024 9:59 AM PAYROLL AND BENEFITS ASSISTANT Respiratory Rate 12 11/23/2024 9:59 AM PAYROLL AND BENEFITS ASSISTANT Oxygen Saturation 100% 11/23/2024 9:59 AM PAYROLL AND BENEFITS ASSISTANT Inhaled Oxygen Concentration - - Weight 62.2 kg (137 lb 3.2 oz) 11/23/2024 9:59 A M PAYROLL AND BENEFITS ASSISTANT Height 157.5 cm (5' 2 ) 11/23/2024 9:59 AM PAYROLL AND BENEFITS ASSISTANT Body Mass Index 25.09 11/23/2024 9:59 AM PAYROLL AND BENEFITS ASSISTANT Plan of Treatment Upcoming Encounters Date Type Department Care Team (Late st Contact Info) Description 11/26/2025 10:00 AM PAYROLL AND BENEFITS ASSISTANT Office Visit [facility] Family & Internal Medicine [address] [phone] Jacqui Molina, DRY ICE MACHINE OPERATOR [address] [place], [place] [phone] Health Maintenance Due Date Last Done Comments Hepatitis B Vaccines (1 of 3 - 19+ 3-dose series) 2003 PHQ-2 (Physician [place]) 12/02/2024 01/03/2024 Annual Physical 11/23/2025 11/23/2024, 01/30, 02/17/2021 COVID-19 Vaccine (2023- season) 2025 09/01/2022, 09/01/2022, 10/17/2021, Additional history exists Postponed from 08/02/2024 (Patient Refused) Mammogram Screening 03/19/2026 03/19/2024, DTaP, Tdap and Td Vaccines (5 - Td or Tdap) 06/17/2029 06/17/2019, 02/08/2014, 12/02/2013, Additional history exists Pneumococcal Vaccine: Pediatrics (0 to 5 Years) and At-Risk Patients (6 to 49 Years) Aged Out 08/17/2014 No longer eligible based on patient's age to complete this topic Hepatitis C Completed 11/01/2020 HPV Vaccines Aged Out No longer eligi ble based on patient's age to complete this topic Meningococcal B Vaccine Aged Out No l onger eligible based on patient's age to complete this topic Meningococcal Vaccine Aged Out No susanne pallavi eligible based on patient's age to complete this topic RSV Immunizations Under 20 Months Aged Out No longer eligible based on patient's age to complete this topic Medical Devices Implanted Type Area Rib Cloth Knitter Device Identifier Shelf Expiration Date Model / Serial / Lot Pump Pain On-Q 400ml - [id number] Implanted:Qty : 1 on 10/16/2023 by Beverly Vallejo MD at [facility] Pump N/A: Abdomen [employer] [id number] 01/20/2025 [id number] / / [id number] Procedures Procedure Name Priority Date/Time Associated Diagnosis Comments MAMMOGRAM GENERIC (SCAN ORDER) 03/19/2024 from Last 3 Months or Most Recently Relevant to Health Maintenance Results * MAMMOGRAM GENERIC (SCAN ORDER) (03/19/2024) Anatomical Region Laterality Modality Other 03/19/2024 us Doc [facility] Scanned SCANNING Final Resu lt from Last 3 Months or Most Recently Relevant to Health Maintenance Insurance [facility] Advance Directives * Full Code (Latest Code Status on File) Date Activated Date Inactivated Comments 10/16/2023 11:44 AM 10/16/2023 4:42 PM * Full Code Date Activated Date Inactivated Comments 07/24/2023 2:46 PM 07/24/2023 6:01 PM Care Teams Roving Frame Tender Relationship Specialty Start Date End Date Jacqui Molina FNP [address] [place] [phone] PCP - General Nurse Practitioner Family 01/18/20
--- OUTSIDE RECORDS SUMMARY | 2025-03-23 09:00 | XMS_ITS | Encounter Summary ---
Author Organization [facility] Address [address] [place] [address] Care Team Providers Care Track Grinder Operator Name Role Phone Jacqui Molina Primary Care Provider [phone] Encounter Details Date Type Department Care Team (Late Contact Info) Description 02/10/2020 [employer] Message Enc [facility] Family & Internal [address] [phone] Jacqui Molina FNP [address] [place] [phone] RE: FW: Question Social History Tobacco Use Types Packs/Day Years Used Date Smoking Tobacco: Never Smokeless Tobacco: Never Alcohol Use Standard Drinks/Week Comments Never 0 (1 standard drink = 0.6 oz pur e alcohol) AUDIT-C Answer Date Recorded Frequency of Alcohol Consumption Never 01/18/2020 Average Number of Drinks Not on file 020 Frequency of Binge Drinking Not on file 01/02 PHQ-2 Answer Date Recorded PHQ-2 Score 0 01/18/2020 Comments No Sex and Gender Information Value Date Recorded Sex Assigned at Not on file Legal Sex Female 1:53 PM JAVASCRIPT PROGRAMMER Gender Identity Not on file Sexual Orientation Not on file documented as of this encounter Plan of Treatment Upcoming Encounters Date Type Department Care Team (Late Contact Info) Description 11/26/2025 10:00 AM JAVASCRIPT PROGRAMMER Office Visit [facility] Family & Internal [address] [phone] Jacqui Molina FNP [address] [place] [phone] documented as of this encounter Visit Diagnoses Not on filedocumented in this encounter Additional Health Concerns Infection Onset Date Last Indicated Resolved Time COVID-19 Rule Out 10/05/2020 10/06/2020 10/17/2020 11:21 AM JAVASCRIPT PROGRAMMER Assessment Noted Time PHQ-9 Depression Total Score: 0 01/18/20 20 10:35 AM JAVASCRIPT PROGRAMMER documented as of this encounter Care Teams Track Grinder Operator Relationship Specialty Start Date End Date Jacqui Molina FNP [address] [place] [address] PCP - General Nurse Practitioner Family 01/18/20 documented as of this encounter
--- OUTSIDE RECORDS SUMMARY | 2025-03-23 09:00 | XMS_ITS | Encounter Summary ---
Author Organization [facility] Address [address] [place] [address] Care Team Providers Care Coin Rolling Machine Operator Name Role Phone Jacqui Molina Primary Care Provider [phone] Encounter Details Date Type Department Care Team (Late st Contact Info) Description 02/04/2020 [employer] Message Enc [facility] Family & Internal [address] [phone] Jacqui Molina FNP [facility] [place], [place] [phone] RE: Test Results Social History Tobacco Use Types Packs/Day Years [...] on file Legal Sex Female 1:53 PM INDUCTOR TESTER Gender Identity Not on file Sexual Orientation Not on file documented as of this encounter Plan of Treatment Upcoming Encounters Date Type Department Care Team (Late st Contact Info) Description 11/26/2025 10:00 AM INDUCTOR TESTER Office Visit [facility] Family & Internal [address] [phone] Jacqui Molina FNP [address] [place] [address] documented as of this encounter Visit Diagnoses Not on filedocumented in this encounter Additional Health Concerns Infection Onset Date Last Indicated Resolved Time COVID-19 Rule Out 10/05/2020 10/06/2020 10/17/2020 11:21 AM INDUCTOR TESTER Assessment Noted Time PHQ-9 Depression Total Score: 0 01/18/20 20 10:35 AM INDUCTOR TESTER documented as of this encounter Care Teams Coin Rolling Machine Operator Relationship Specialty Start Date End Date Jacqui Molina FNP [address] [place] [address] PCP - General Nurse Practitioner Family 01/18/20 documented as of this encounter
--- OUTSIDE RECORDS SUMMARY | 2025-03-23 09:00 | XMS_ITS | Encounter Summary ---
Author Organization [facility] Address [address] [place] [address] Care Team Providers Care Family Development Specialist Name Role Phone Jacqui Molina Primary Care Provider [phone] Encounter Details Date Type Department Care Team (Late Contact Info) Description 04/06/2020 Verient Message Enc [facility] 3 [facility], [facility] [address] [place] [phone] [place] [id number] [facility] [address] [place] [address] RE: Question Social History Tobacco Use Types Packs/Day [...] on file Legal Sex Female 1:53 PM CIVIL ENGINEERING DESIGN DRAFTSPERSON Gender Identity Not on file Sexual Orientation Not on file documented as of this encounter Plan of Treatment Upcoming Encounters Date Type Department Care Team (Late Contact Info) Description 11/26/2025 10:00 AM CIVIL ENGINEERING DESIGN DRAFTSPERSON Office Visit [facility] Medical [facility] Medicine [address] [phone] Jacqui Molina FNP [facility] [place] [address] documented as of this encounter Visit Diagnoses Not on filedocumented in this encounter Additional Health Concerns Infection Onset Date Last Indicated Resolved Time COVID-19 Rule Out 10/05/2020 10/06/2020 10/17/2020 11:21 AM CIVIL ENGINEERING DESIGN DRAFTSPERSON Assessment Noted Time PHQ-9 Depression Total Score: 0 01/18/20 10:35 AM CIVIL ENGINEERING DESIGN DRAFTSPERSON documented as of this encounter Care Teams Family Development Specialist Relationship Specialty Start Date End Date Jacqui Molina FNP [address] [place] [id number] PCP - General Nurse Practitioner Family 01/18/20 documented as of this encounter
--- OUTSIDE RECORDS SUMMARY | 2025-03-23 09:00 | XMS_ITS | Encounter Summary ---
Author Organization [facility] Address [address] [place] [address] Care Team Providers Care Armature [employer] Name Role Phone Jacqui Molina Primary Care Provider [phone] Encounter Details Date Type Department Care Team (Late Contact Info) Description 01/20/2023 Equa[employer] Message Enc [facility] [address] [phone] Jacqui Molina FNP [address] [place] [address] [phone] control Social History Tobacco Use Types Packs/Day Years [...] on file Legal Sex Female 1:53 PM CERTIFIED ORTHOTIC FITTER Gender Identity Not on file Sexual Orientation Not on file documented as of this encounter Plan of Treatment Upcoming Encounters Date Type Department Care Team (Late Contact Info) Description 11/26/2025 10:00 AM CERTIFIED ORTHOTIC FITTER Office Visit [facility] [address] [phone] Jacqui Molina FNP [address] [place] [address] documented as of this encounter Visit Diagnoses Not on filedocumented in this encounter Additional Health Concerns Assessment Noted Time PHQ-9 Depression Total Score: 0 11/20/20 22 9:56 AM CERTIFIED ORTHOTIC FITTER documented as of this encounter Care Teams Armature [employer] Relationship Specialty Start Date End Date Jacqui Molina FNP [address] [place] [address] PCP - General Nurse Practitioner Family 01/18/20 documented as of this encounter
--- OUTSIDE RECORDS SUMMARY | 2025-03-23 09:00 | XMS_ITS | Clinical Summary ---
Author Organization [facility] Address [address] [place] [address] Care Team Providers Care Balance Recesser Name Role Phone Jacqui Molina NP Primary Care Provider Allergies Active Allergy Reactions Criticality Noted Date Comments Lidocaine Palpitations Low 07/19/2023 Metformin Other (See comments) Medium 05/26/2019 Severe Cramping Medications no.[id number] 28 mg iron- 1 mg-200 mg capsule Take 1 tablet by mouth daily. 30 capsule 12 8 Active norethindrone (MICRONOR) 0.35 mg tabletIndications : Contraception Take one pill by mouth every day on time 28 tablet 12 9 Active albuterol HFA (PROVENTIL HFA,VENTOLIN HFA,PROAIR HFA) 90 mcg/actuation inhaler 2 [puff]s every 4 hours by inhalation route. 3 Active cholecalciferol (VITAMIN D-3) 2000 unit tablet Take 50 mcg by mouth daily Active EPINEPHrine 0.3 mg/0.3 mL auto-injection syringe For allergy shots 2 Active hydrocortisone (ANUSOL-HC) 2.5 % rectal cream Insert into the rectum 2 (two) times a day 4 Active metroNIDAZOLE (FLAGYL) 500 mg tablet Take 1 tablet (500 mg total) by mouth every 12 (twelve) hours Active Contrave 8-90 mg tablet extended release 4 Active Active Problems Problem Noted Date Diagnosed Date High grade squamous intraepi thelial lesion (HGSIL), grade 3 HIRO, on biopsy of cervix 10/15/2023 S/P hysterectomy 10/15/2023 Carcinoma in situ of uterine cervix 08/05/2023 Dysplasia of cervix, high grade HIRO 2 07/24/2023 Epidermoid cyst of skin of back 11/20/2022 Acute thoracic back pain 10/04/2020 Goiter 01/19/2020 Diet controlled gestational diabetes mellitus (GDM) in third trimester 04/07/2019 Low grade squamous intraepit h lesion on cytologic smear cervix (lgsil) 01/23/2019 Vitamin D deficiency 01/14/2019 Cervical high risk HPV (human papillomavirus) te st positive 04/17/2014 Overview (03/08/2017): High risk HPV infection High-risk human papillomavir us (HPV) DNA detected in cervical specimen 04/17/2014 Resolved Problems Problem Noted Date Diagnosed Date Resolved Date Sebaceous cyst 10/18/2016 01/23/2019 Overview (03/08/2017): Benign cyst of skin Open wound of groin 09/25/2016 01/23/20 19 Overview (03/08/2017): Non-healing right groin open wound, initial encounter Immunizations Immunization Administration Dates Next Due Influenza, Quadrivalent, Spl it, Intramuscular 08/02/2016 Influenza, Trivalent, IM (MDV) 12/02/2013,2010 MMR 06/18/2019 Tdap 06/17/2019,12/02/2013,08/11/2008 Surgical History Surgery Date Site/Laterality Comments TONSILLECTOMY 1987 Tonsillectomy OTHER SURGICAL HISTORY 2003 Abnormal PAP: LEEP in [place] OTHER SURGICAL HISTORY 2011 Hx of moderate dysplasia and HR HPV positive: HR HPV now negative TONSILLECTOMY Tonsillectomy Medical History Medical History Date Comments Hx Other Medical hernia disc in neck Asthma Asthma History of abnormal cervical Papanicolaou smear Abnormal PAP Hx Other Medical 2011 Possible right ankle tarsal tunnel Hx Other Medical Tarsal Tunnel S yndrome Hx Other Medical 2008 Hx of moderate dysplasia and HR HPV positive Hx Other Medical 2013 ; Outc ome: 39 week 8 lb(s) 2 oz Female Family History Medical History Relation Name Comments Lung cancer Father Cancer -lung; Breast cancer Father's Sister Cancer, nj ast; Hyperlipidemia Other 1 Family histor y of Hyperlipidemia; Hypertension Other 2 Hypertension; Diabetes Other 3 Diabetes mellit us; Breast cancer Other 4 Family history of Cancer -breast; Diabetes Other 5 Family history of Diabetes mellitus; Heart attack Other 6 Family history of Myocardial infarction; Stroke Other 7 Family history of Stroke; Glaucoma Other 8 Family history of Glaucoma; Other Other 9 Family history of Cancer -skin; Breast cancer Paternal Grandmother Cancer , breast; JT 10/11/2014 -and possible great pat. aunt. Lymphoma Sister Lymphoma; Relation Name Status Comments Father Father's Sister Other 1 Other 2 Other 3 Other 4 Other 5 Other 6 Other 7 Other 8 Other 9 Paternal Grandmother Sister Social History Tobacco Use Types Packs/Day Years Used Date Smoking Tobacco: Never Smokeless Tobacco: Never Alcohol Use Standard Drinks/Week Comments Yes 0 (1 standard drink = 0.6 oz pur e alcohol) PHQ-2 Answer Date Recorded PHQ-2 Score 0 07/24/2019 Comments Unknown Sex and Gender Information Value Date Recorded Sex Assigned at Not on file Legal Sex Female 7:52 PM FINANCIAL REPORTING CONSULTANT Gender Identity Not on file Sexual Orientation Not on file Obstetrics History Para Term AB IAB SAB Ectopic Multiple Livin g Live Births 3 3 3 0 3 3 Date Outcome GA Total Labor Labor/2nd/3rd Weight Sex Type Anes PTL Leena A1 A5 Name Clin Term Vag-S pont Livin g Term Vag-S pont 2018 Term 39w 1d 1h 40m 1h 30m/0h 10m 3.657 kg (8 lb 1 oz) M Vag-S pont Epidur al N Livin g 8 9 MCKENNA CHAIDEZ,Tomas Russell RA, MD Complications:None Delivery Location:This [facility] ([facility]) Last Filed Vital Signs Vital Sign Reading Time Taken Comments Blood Pressure 106/66 06/08/2024 7:16 PM CDT Pulse 73 06/08/2024 7:16 PM CDT Temperature 36.8 C (98.2 F) 06/08/2024 7:16 PM CDT Respiratory Rate 16 06/08/2024 7:16 PM CDT Oxygen Saturation 99% 06/08/2024 7:16 PM CDT Inhaled Oxygen Concentration - - Weight 63 kg (139 lb) 06/08/2024 7:16 PM CDT Height 157.5 cm (5' 2 ) 06/08/2024 7:16 PM CDT Body Mass Index 25.42 06/08/2024 7:16 PM CDT Plan of Treatment Health Maintenance Due Date Last Done Comments Albumin Creatinine Ratio, Urine 1984 Breast Cancer Screening-Mammogram 1984 Depression Screening 1984 Hemoglobin A1C 1984 eGFR 1984 Dilated Eye Exam 1984 Foot Exam 1984 Hepatitis B Screening 2002 Pneumococcal vaccine <65 (2 of 2 - PCV) 08/17/2015 08/17/2014 Lipid Panel 09/25/2017 09/25/2016, 09/06/2015 Varicella Vaccines (2 of 2 - 13+ 2-dose series) 07/16/2019 06/18/2019 Regular Well Visit/Exam 18-64 09/10/2019 09/10/2018, 09/05/2017 Cervical Cancer Screening 07/31/20202018, 09/10/2018, 09/10/2018 Covid-19 Vaccine ( - season) 2024 09/01/2022, 09/01/2022, 10/17/2021, Additional history exists Influenza Vaccine (Season Ended) 2025 09/19/2023, 09/21/2022, 09/01/2022, Additional history exists DTaP/Tdap/Td Vaccine (5 - Td or Tdap) 06/17/2029 06/17/2019, 02/08/2014, 12/02/2013, Additional history exists Hepatitis C Screening Completed 01/10/2019 , 01/10/2019, 08/07/2013 HPV Vaccines Aged Out No longer eligi ble based on patient's age to complete this topic Procedures Procedure Name Priority Date/Time Associated Diagnosis Comments THINPREP CAFE TEAM MEMBER PAP (IMAGE GUIDED) LIQUID-BASED PREP Routine 07/31/2019 2:00 PM CDT Encounter for visit Low grade squamous intraepith lesion on cytologic smear cervix (lgsil) Cervical high risk HPV (human papillomavirus) test positive HEPATITIS C ANTIBODY Routine 01/10/2019 10:13 AM FINANCIAL REPORTING CONSULTANT SERUM LIPID PANEL Routine 09/25/2016 3:1 0 PM CDT from Last 3 Months or Most Recently Relevant to Health Maintenance Results * ThinPrep Gynecologic Pap Test (Image-guided), Liquid-based Preparation (07/31/2019 2:00 PM CDT) CLINICAL INFORMATION: [facility] - Comment:Information not prov ided LMP [facility] - Comment:INFORMATION NOT PROV IDED Previous Pap [facility] - Comment:INFORMATION NOT PROV IDED Prev. Bx [facility] - Comment:INFORMATION NOT PROV IDED SOURCE: [facility] - Comment:Information not prov ided Pap, specimen adequacy [facility] - Comment: Satisfactory for evaluation. Endocervical/transformation zone component present. Age and/or menstrual status not provided HPV interp [facility] - Comment:Negative for intraep ithelial lesion or malignancy. COMMENTS [facility] - Comment: This Pap test has been evaluated with computer assisted technology. [employer] [facility] Comment: BEF, CT(ASCP) CT screening location: [place] [address] [place] [address] Comment [facility] Comment: EXPLANATORY NOTE: The Pap is a screening test for cervical cancer. It is not a diagnostic test and is subject to false negative and false positive results. It is most reliable when a satisfactory sample, regularly obtained, is submitted with relevant clinical findings and history, and when the Pap result is evaluated along with historic and current clinical information. Cervical 07/31/2019 2:00 PM CDT 08/04/2019 5:40 AM CDT Narrative Resulting Agency Comment Performing Organization Information: Site ID: Name: [facility] Address: [facility] [place] [address] Director: Jenifer Calvin us Jacques Epstein MD LAB PATHOLOGY ORDERABLES F inal Result [facility] [employer] [facility] [place] * Hepatitis C antibody (01/10/2019 10:13 AM FINANCIAL REPORTING CONSULTANT) Hep C Ab <0.1 0.0 - 0.9 s/co ratio [facility] - 01 Comment: Negative: < 0.8 Indeterminate: 0.8 - 0.9 Positive: > 0.9 The CDC recommends that a positive HCV antibody result be followed up with a HCV Nucleic Acid Amplification test (627042). 01/10/2019 10:1 3 AM FINANCIAL REPORTING CONSULTANT 01/10/2019 Narrative [facility] - 01/14/2019 5:13 AM FINANCIAL REPORTING CONSULTANT Performed at: 01 - [address] [id number] Dust Collector Attendant: Terrance Bradford PhD, Phone: [phone] Jacques Epstein MD LAB MICROBIOLOGY - GENERAL ORDERABLES Final Result [facility] - * Serum lipid panel (09/25/2016 3:10 PM CDT) [facility] Cholesterol 139 100 - 199 mg/dl CDR HISTORICAL RESULTS Triglycerides 90 0 - 149 mg/dl CDR HISTORICAL RESULTS HDL 47 >39 mg/dl CDR HISTOR ICAL RESULTS Comment: According to ATP-III Guidelines, HDL-C >59 mg/dL is considered a negative risk factor for CHD. VLDL 18 5 - 40 mg/dl CDR HISTORICAL RESULTS LDL 74 0 - 99 mg/dl CDR HISTORICAL RESULTS Serum 09/25/2016 3:10 PM CDT Historical Provider LAB BLOOD ORDERABLES Cecilia l Result CDR HISTORICAL RESULTS from Last 3 Months or Most Recently Relevant to Health Maintenance Insurance [employer] O[employer] Advance Directives For more information, please contact: [phone] * Full Code (Latest Code Status on File) Date Activated Date Inactivated Comments 06/17/2019 2:49 AM 06/18/2019 8:25 PM * Full Code Date Activated Date Inactivated Comments 06/16/2019 9:49 PM 06/17/2019 2:49 AM Full CPR in case of cardiopulmonary arrest Care Teams Balance Recesser Relationship Specialty Start Date End Date Jacqui Molina NP [address] [place] [address] PCP - General Nurse Practitioner 06/05/22
--- OUTSIDE RECORDS SUMMARY | 2025-03-23 09:00 | XMS_ITS | Referral Summary ---
Author Organization [facility] Address [address] [place] [address] Care Team Providers Care Sports Manager Name Role Phone Jacqui Molina NP Primary Care Provider Allergies Active Allergy Reactions Criticality Noted Date Comments Lidocaine Palpitations Low 07/19/2023 Metformin Other (See comments) Medium 05/26/2019 Severe Cramping Medications no.[id number] 28 mg iron- 1 mg-200 mg capsule [...] IM (MDV) 12/02/2013,2010 MMR 06/18/2019 Tdap 06/17/2019,12/02/2013,08/11/2008 Social History Tobacco Use Types Packs/Day Years Used Date Smoking Tobacco: Never Smokeless Tobacco: Never Alcohol Use Standard Drinks/Week Comments Yes 0 (1 standard drink = 0.6 oz pur e alcohol) PHQ-2 Answer Date Recorded PHQ-2 Score 0 07/24/2019 Comments Unknown Sex and Gender Information Value Date Recorded Sex Assigned at Not on file Legal Sex Female 7:52 PM ASSOCIATE PRODUCT INTEGRITY ENGINEER Gender Identity Not on file Sexual Orientation [...] 06/08/2024 7:16 PM CDT Plan of Treatment Not on file Procedures Procedure Name Priority Date/Time Associated Diagnosis Comments THINPREP BILLIARD TABLE REPAIRER PAP (IMAGE GUIDED) LIQUID-BASED PREP Routine 07/31/2019 2:00 PM CDT Encounter for visit Low grade squamous intraepith lesion on cytologic smear cervix (lgsil) Cervical high risk HPV (human papillomavirus) test positive HEPATITIS C ANTIBODY Routine 01/10/2019 10:13 AM ASSOCIATE PRODUCT INTEGRITY ENGINEER SERUM LIPID PANEL Routine 09/25/2016 3:1 0 PM CDT from Last 3 Months or Most Recently Relevant to Health Maintenance Results * ThinPrep Gynecologic Pap Test (Image-guided), Liquid-based Preparation (07/31/2019 2:00 PM CDT) CLINICAL INFORMATION: [employer] - Comment:Information not prov ided LMP [facility] - Comment:INFORMATION NOT PROV IDED Previous Pap [facility] - Comment:INFORMATION NOT PROV IDED Prev. Bx [facility] - Comment:INFORMATION NOT PROV IDED SOURCE: [facility] - Comment:Information not prov ided Pap, specimen adequacy [facility] - Comment: Satisfactory for evaluation. Endocervical/transformation zone component present. Age and/or menstrual status not provided HPV interp [facility] [facility] - Comment:Negative for intraep ithelial lesion or malignancy. COMMENTS [facility] - Comment: This Pap test has been evaluated with computer assisted technology. [employer] [facility] - Comment: BEF, CT(ASCP) CT screening location: [place] [address] [place] [address] Comment [facility] - Comment: EXPLANATORY NOTE: The Pap is a [...] Comment Performing Organization Information: Site ID: Name: [id number] Address: [address] [place] [address] Director: Jenifer Calvin Jacques Epstein MD LAB PATHOLOGY ORDERABLES F inal Result Performing Organization Address City/[facility] Co de Phone Number [employer] [place], [place] * Hepatitis C antibody (01/10/2019 10:13 AM ASSOCIATE PRODUCT INTEGRITY ENGINEER) Hep C Ab <0.1 0.0 - 0.9 s/co ratio [facility] - 01 Comment: Negative: < 0.8 Indeterminate: 0.8 - 0.9 Positive: > 0.9 The CDC recommends that a positive HCV antibody result be followed up with a HCV Nucleic Acid Amplification test (354955). 01/10/2019 10:1 3 AM ASSOCIATE PRODUCT INTEGRITY ENGINEER 01/10/2019 Narrative [facility] - 01/14/2019 5:13 AM ASSOCIATE PRODUCT INTEGRITY ENGINEER Performed at: [address] [place] [id number] Airplane Mechanic: Terrance Bradford PhD, Phone: [phone] Jacques Epstein MD LAB MICROBIOLOGY - GENERAL ORDERABLES Final Result Performing Organization Address City/[facility] Co de Phone Number [facility] - 01 * Serum lipid panel (09/25/2016 3:10 PM CDT) Cholesterol 139 100 - 199 mg/dl CDR [...] HISTORICAL RESULTS Serum 09/25/2016 3:10 PM CDT us Historical Provider LAB BLOOD ORDERABLES Cecilia mohamud Result CDR HISTORICAL RESULTS from Last 3 Months or Most Recently Relevant to Health Maintenance Insurance [employer] O[employer] Advance Directives For more information, please contact: [phone] * Full Code (Latest Code Status on File) Date Activated Date Inactivated Comments 06/17/2019 2:49 AM 06/18/2019 8:25 PM * Full Code Date Activated Date Inactivated Comments 06/16/2019 9:49 PM 06/17/2019 2:49 AM Full CPR in case of cardiopulmonary arrest Care Teams Sports Manager Relationship Specialty Start Date End Date Jacqui Molina NP [address] [place] [id number] PCP - General Nurse Practitioner 06/05/22
--- OUTSIDE RECORDS SUMMARY | 2025-03-23 09:00 | XMS_ITS | Clinical Summary ---
Author Organization [facility] Address [address] [place] [address] Phone Care Team Providers Care Pusher Runner Name Role Phone Alba Valladares APN Primary Care Provider Ana vailable Allergies No known active allergies Medications cetirizine (ZYRTEC) 10 MG Tablet Take 10 mg by mouth daily. Active Vit-Fe Fumarate-FA ( VITAMIN PO) Take by mouth once. Active ibuprofen (MOTRIN) 600 MG Tablet Take 1 Tab by mouth every 6 hours as needed for Pain. 270 Tab 3 06/13/2016 Active Active Problems No known active problems Family History Medical History Relation Name Comments Cancer Father Diabetes Maternal Grandfather Diabetes Maternal Grandmother Heart Disease Maternal Grandmother Diabetes Paternal Grandfather Cancer Paternal Grandmother Cancer Sister Relation Name Status Comments Father Maternal Grandfather Maternal Grandmother Paternal Grandfather Paternal Grandmother Sister Social History Tobacco Use Types Packs/Day Years Used Date Smoking Tobacco: Never Smokeless Tobacco: Never Alcohol Use Standard Drinks/Week Comments No 0 (1 standard drink = 0.6 oz pur e alcohol) Sexually Active Control Partners Comments Yes Male Comments No Sex and Gender Information Value Date Recorded Sex Assigned at Not on file Legal Sex Female 7:32 PM CDT Gender Identity Not on file Sexual Orientation Not on file Last Filed Vital Signs Vital Sign Reading Time Taken Comments Blood Pressure 108/71 06/13/2016 7:00 AM CDT Pulse 79 06/13/2016 7:00 AM CDT Temperature 36.6 C (97.8 F) 06/13/2016 7:00 AM CDT Respiratory Rate 16 06/13/2016 7:00 AM CDT Oxygen Saturation 99% 06/13/2016 7:00 AM CDT Inhaled Oxygen Concentration - - Weight 80.7 kg (178 lb) 06/11/2016 7:49 AM CDT Height 158.8 cm (5' 2.5 ) 06/11/2016 7:49 AM CDT Body Mass Index 32.04 06/11/2016 7:49 AM CDT Plan of Treatment Health Maintenance Due Date Last Done Comments Hepatitis C Virus (HCV) Screening 1984 Hepatitis B Immunization (1 of 3 - 19+ 3-dose series) 2003 Pap Smear 2005 Cervical Cancer Screening (CCS) 2014 HPV/Cotest 2014 Discussion re Starting/Frequency of Mammograms 2024 Influenza Immunization (#1) 2024 08/2 , 08/27/2019, 08/20/2018, Additional history exists SARS-COV-2 Immunization ( season) 2024 10/17/2021, 01/26/2021, 12/28/2020 Respiratory Syncytial Virus (RSV) Immunization (Adult) (1 - 1-dose 75+ series) 2059 DTaP/Tdap/Td Immunization Discontinued 02/08/2014 TdaP Immunization Completed 02/08/2014 Pneumococcal Immunization Combined Aged Out 08/17/2014 No longer eligible based on patient's age to complete this topic Meningococcal Immunization (ACWY) Aged Out No longer eligible based on patient's age to complete this topic Rotavirus Immunization Aged Out No lo nger eligible based on patient's age to complete this topic Advance Directives * Full Code (Latest Code Status on File) Date Activated Date Inactivated Comments 06/11/2016 6:59 AM 06/13/2016 4:25 PM CPR-Full Saul atment: FULL ARREST: Attempt Resuscitation/CPR wit intubation and mechanical ventilation. PRE-ARREST: Use entire range of life support measures to stabilize the patient. * Full Code Date Activated Date Inactivated Comments 05/29/2016 9:00 PM 05/30/2016 4:49 AM CPR-Full Saul atment: FULL ARREST: Attempt Resuscitation/CPR wit intubation and mechanical ventilation. PRE-ARREST: Use entire range of life support measures to stabilize the patient. Care Teams Pusher Runner Relationship Specialty Start Date End Date Alba Valladares APN PCP - General Advanced Practice Nurse 05/23/16
== END 2025-03-23 08:37 | disposition home or self-care (01) ==
PROVIDERS: PCP Nurse Practitioner Family; Visit Provider Nurse Practitioner Family
DX: Z12.31 Encounter for screening mammogram for malignant neoplasm of breast (principal); R92.8 Other abnormal and inconclusive findings on diagnostic imaging of breast
CPT/HCPCS: 77063; 77067

== ENCOUNTER 2025-04-20 08:10 | Outpatient (CLI) | payer BC, SELFPAY ==
--- NOTE | ~2025-04-20 | MM_ITS ---
EXAMINATION: MM diagnostic yoly LT w cecile HISTORY: Follow-up left breast asymmetry TECHNIQUE: Additional 3-D tomosynthesis images of the left breast were performed and synthetic 2-D im ages were generated. CAD analysis was submitted and interpreted. COMPARISON: Comparison to multiple prior studies sequentially, with oldest reviewed study dated 05/2023. BREAST PARENCHYMAL COMPOSITION: Dense: The breasts are heterogeneously dense, which may obscure small masses FINDINGS: Focal asymmetry in the left breast laterally, middle third, compresses with spot CC view, c ompatible with superimposed fibroglandular tissue. No suspicious mass, architectural distortion or cl ustered calcifications are identified to suggest malignancy. IMPRESSION: 1. No evidence for malignancy in the left breast. 2. Routine yearly screening mammogram and regular clinical breast examination are recommended. BI-RADS Category 1: Negative Reviewed, dictated and finalized at location B. IMPRESSION: 1. No evidence for malignancy in the left breast. 2. Routine yearly screening mammogram and regular clinical breast examination a re recommended. BI-RADS Category 1: Negative
== END 2025-04-20 08:11 | disposition home or self-care (01) ==
LOC: MICIMG 08:10
PROVIDERS: PCP Nurse Practitioner Family; Visit Provider Nurse Practitioner Family
DX: R92.8 Other abnormal and inconclusive findings on diagnostic imaging of breast (principal)
CPT/HCPCS: 77061; 77065; G0279